=== PATIENT | female | born 1935 ===

== ENCOUNTER 2017-07-06 10:58 | Emergency (ER) | payer OTHER ==
[~2017-07-06] VITALS: Ht 149.9 cm; Wt 78.5 kg
== END 2017-07-06 17:44 | disposition home or self-care (01) ==
LOC: ER 10:58
DX: I10 Essential (primary) hypertension (principal); R47.81 Slurred speech; R41.0 Disorientation, unspecified

== ENCOUNTER 2017-07-07 11:24 | Outpatient (CLI) | payer OTHER | END 2017-07-07 11:28 | disposition home or self-care (01) | LOC: RAD 11:24 | DX: J44.9 Chronic obstructive pulmonary disease, unspecified (principal) ==

== ENCOUNTER 2018-01-16 09:16 | Emergency (ER) | payer OTHER ==
[~2018-01-16] VITALS: Ht 139.7 cm; Wt 71.7 kg
== END 2018-01-16 11:41 | disposition home or self-care (01) ==
LOC: ER 09:16
DX: S00.83XA Contusion of other part of head, initial encounter (principal); W06.XXXA Fall from bed, initial encounter; Y93.89 Activity, other specified; Y92.013 Bedroom of single-family (private) house as the place of occurrence of the external cause; Y99.8 Other external cause status

== ENCOUNTER 2021-05-27 14:55 | Outpatient (CLI) | payer OTHER | END 2021-05-27 16:00 | disposition home or self-care (01) | LOC: PPH VACUNA 14:55 | PROVIDERS: ATTEND Emergency Medicine Pediatric Emergency Medicine | DX: Z23 Encounter for immunization (principal) ==